=== PATIENT | female | born 1965 | race Asian ===

== ENCOUNTER 2016-06-11 08:52 | Day surgery (SDC) | payer OTHER ==
[~2016-06-11] VITALS: Ht 165.1 cm; Wt 70.3 kg
[2016-06-11] MEDS ORDERED: LOTENSIN20 MG PO (10:58)
[2016-06-11] MEDS ORDERED: MIDAZOLAM 2 MG/2 ML VIAL ONE ×2 (11:18→11:19)
[2016-06-11] MEDS ORDERED: fentaNYL 0.05 MG/ML VIAL ONE (11:18)
[2016-06-11] MEDS ORDERED: LIDOCAINE 2% 100 MG/5 ML UJET TP ONE (11:19)
== END 2016-06-11 12:30 | disposition home or self-care (01) ==
LOC: MDS 08:52 → MMU 08:53 → MDS 12:30
PROVIDERS: ATTEND Internal Medicine Gastroenterology
DX: Z12.11 Encounter for screening for malignant neoplasm of colon (principal); D12.3 Benign neoplasm of transverse colon; D12.4 Benign neoplasm of descending colon; D12.7 Benign neoplasm of rectosigmoid junction

== ENCOUNTER 2021-07-17 10:13 | Day surgery (SDC) | payer MEDICAID ==
[~2021-07-17] VITALS: Ht 165.1 cm; Wt 65.8 kg
[~2021-07-17 10:13] MED LIST: BENA20TA PO
[2021-07-17] MEDS ORDERED: fentaNYL citrate 0.05 MG/ML VIAL ONE (12:05)
[2021-07-17] MEDS ORDERED: fentaNYL citrate 0.05 MG/ML VIAL IVP ONE (12:50)
== END 2021-07-17 13:20 | disposition home or self-care (01) ==
LOC: MDS 10:13 → MMU 10:47 → MDS 13:20
PROVIDERS: ATTEND Internal Medicine Gastroenterology
DX: Z12.11 Encounter for screening for malignant neoplasm of colon (principal); D12.0 Benign neoplasm of cecum; D12.2 Benign neoplasm of ascending colon; I10 Essential (primary) hypertension; E66.3 Overweight; E78.00 Pure hypercholesterolemia, unspecified; Z79.899 Other long term (current) drug therapy
CPT/HCPCS: 45385; J3010